=== PATIENT | female | born 1940 | race Two or more races ===

== ENCOUNTER 2021-04-25 12:13 | Emergency (ER) | payer OTHER ==
[2021-04-25 12:44] VITALS: TEMP 98.5
[2021-04-25 15:21] LABS: BASO % 1.1 % (0-2.0); EOS % 2.1 % (0-4.5); HEMOGLOBIN 13.4 GM/dL (10.7-15.3); LYMPH % 31.4 % (8-40); MCH 29.4 pg (25.7-33.7); MCHC 34.3 g/dl (32.0-36.0); MEAN CELL VOLUME 85.8 fl (80-96); MEAN PLT VOLUME 8.2 fl (7.5-11.1); MONO % 10.3 % (3.8-10.2); NEUT % 55.1 % (42.8-82.8); PLATELET COUNT 328 10^3/uL (134-434); RBC 4.54 M/mm3 (3.60-5.2); RDW 13.5 % (11.6-15.6); WHITE BLOOD COUNT 10.3 K/mm3 (4.0-10.0)
[2021-04-25 15:39] LABS: CHLORIDE 102 mmol/L (98-107); SODIUM 138 mmol/L (136-145)
[2021-04-25 15:42] LABS: ALBUMIN 3.4 g/dl (3.4-5.0); ANION GAP 8 MMOL/L (8-16); BLOOD UREA NITROGEN 9.7 mg/dL (7-18); CALCIUM 9.3 mg/dL (8.5-10.1); CO2 28 mmol/L (21-32); GLUCOSE,RANDOM 83 mg/dL (74-106)
[2021-04-25 15:45] LABS: CREATININE 0.5 mg/dL (0.55-1.3); SGOT/AST 74 U/L (15-37); SGPT/ALT 88 U/L (13-61)
[2021-04-25 15:47] LABS: BILIRUBIN,TOTAL 0.3 mg/dL (0.2-1); TOT PROT 6.8 g/dl (6.4-8.2)
[2021-04-25 15:48] LABS: ALK PHOS 191 U/L (45-117)
[2021-04-25] MEDS ORDERED: SODIUM CHLORIDE 0.9% 500 ML INFUS.BAG IV ONE (17:00)
[2021-04-25 17:32] VITALS: BP 147/71; PULSE 70
[2021-04-25 18:46] LABS: LDH 273 U/L (84-246)
[2021-04-25 19:16] LABS: EPI CELLS 2 /uL (0-25.1); HYALINE CASTS 0 /uL (0-3.1); URINE APPEARANCE CLEAR; URINE BACTERIA 2 /uL (0-1359); URINE BILIRUBIN NEGATIVE (NEGATIVE); URINE COLOR YELLOW; URINE GLUCOSE (UA) NEGATIVE (NEGATIVE); URINE KETONE NEGATIVE (NEGATIVE); URINE LEUK ESTERASE NEGATIVE (NEGATIVE); URINE NITRITE NEGATIVE (NEGATIVE); URINE PROTEIN NEGATIVE (NEGATIVE); URINE RBC 29 /uL (0-23.9); URINE WBC 1 /uL (0-25.8)
== END 2021-04-25 20:20 | disposition home or self-care (01) ==
LOC: JER 12:13
DX: R53.1 Weakness (principal); M79.10 Myalgia, unspecified site
CPT/HCPCS: 36415; 71045-TC-FY; 71275-TC; 80053; 81003; 82550; 82728; 83615; 83735; 84436; 84443; 84484; 85025; 85379; 86140; 87086; 87804; 93005; 93010; 99285-25; C9803; Q9967; U0003; U0005

== ENCOUNTER 2021-06-24 04:37 | Day surgery (SDC) | payer OTHER ==
[2021-06-24] MEDS ORDERED: LIDOCAINE HCL/PF 1% SDV 5ML VIAL ONE (07:42)
[2021-06-24] MEDS ORDERED: BUPIVACAINE HCL/PF 0.75% 10 ML VIAL ONE (07:42)
[2021-06-24] MEDS ORDERED: IOHEXOL 180 MG/1 ML ML IJ ONE (09:06)
[2021-06-24] MEDS ORDERED: BUPIVACAINE HCL/PF 0.5% (5 MG/ML) 30 ML VIAL IJ ONE (09:06)
[2021-06-24 09:32] VITALS: BP 110/55; PULSE 65; TEMP 98.7
== END 2021-06-24 11:00 | disposition home or self-care (01) ==
LOC: JASU-SURG 04:37
PROVIDERS: ATTEND Pain Medicine Pain Medicine
PROC: BR14YZZ Fluoroscopy of Cervical Facet Joint(s) using Other Contrast (ICD-10-PCS; 2021-06-24)
PROC: 3E0T3BZ Introduction of Anesthetic Agent into Peripheral Nerves and Plexi, Percutaneous Approach (ICD-10-PCS; principal; 2021-06-24 08:30)
DX: M47.812 Spondylosis without myelopathy or radiculopathy, cervical region (principal)
CPT/HCPCS: 76000-TC-FY

== ENCOUNTER 2021-07-25 05:19 | Day surgery (SDC) | payer OTHER ==
[2021-07-23 11:12] VITALS: BMI 25.7
[2021-07-25] MEDS ORDERED: BUPIVACAINE HCL/PF 0.5% (5MG/ML) 10 ML VIAL ONE (07:20)
[2021-07-25] MEDS ORDERED: LIDOCAINE HCL/PF 1% SDV 5ML VIAL ONE (07:20)
[2021-07-25] MEDS ORDERED: IOHEXOL 180 MG/1 ML ML IJ ONE (09:57)
[2021-07-25] MEDS ORDERED: BUPIVACAINE HCL/PF 0.5% (5MG/ML) 10 ML VIAL IJ ONE (09:59)
[2021-07-25] MEDS ORDERED: ACETAMINOPHEN 325 MG TABLET (FP) ONE (10:57)
[2021-07-25 12:22] VITALS: BP 135/72; PULSE 76; TEMP 98.7
== END 2021-07-25 11:42 | disposition home or self-care (01) ==
LOC: JASU-SURG 05:19
PROVIDERS: ATTEND Pain Medicine Pain Medicine
PROC: 3E0T33Z Introduction of Anti-inflammatory into Peripheral Nerves and Plexi, Percutaneous Approach (ICD-10-PCS; 2021-07-25)
PROC: 3E0T3BZ Introduction of Anesthetic Agent into Peripheral Nerves and Plexi, Percutaneous Approach (ICD-10-PCS; principal; 2021-07-25 09:40)
DX: M47.812 Spondylosis without myelopathy or radiculopathy, cervical region (principal)
CPT/HCPCS: 76000-TC-FY

== ENCOUNTER 2022-02-07 17:06 | Observation (INO) | payer OTHER ==
[2022-02-07 17:26] VITALS: BMI 25.4
[2022-02-07] MEDS ORDERED: ASPIRIN 81 MG CHEWABLE TABLETS PO ONE (19:19)
[2022-02-07] MEDS ORDERED: ONDANSETRON 4 MG/2 ML VIAL IVPB ONE (19:20)
[2022-02-07] MEDS ORDERED: SODIUM CHLORIDE 0.9% 500 ML INFUS.BAG IV ONE (19:20)
[2022-02-07] MEDS ORDERED: FAMOTIDINE 20 MG/50 ML IVPB 20 MG/50 ML MG IVPB ONE ×2 (19:20→19:29)
[2022-02-07] MEDS ORDERED: ACETAMINOPHEN 1000 MG/100 ML BAG IVPB ONE (19:21)
[2022-02-07] MEDS ORDERED: ONDANSETRON 4 MG/2 ML VIAL ONE ×2 (19:29→19:37)
[2022-02-07] MEDS ORDERED: ACETAMINOPHEN INJECTION 100 ML IVPB ONE (19:29)
[2022-02-07] MEDS ORDERED: ASPIRIN 81 MG CHEWABLE TABLETS ONE (19:29)
[2022-02-07 19:44] LABS: BASO % 0.8 % (0-2.0); EOS % 1.3 % (0-4.5); HEMATOCRIT 44.2 % (32.4-45.2); HEMOGLOBIN 14.4 GM/dL (10.7-15.3); INR 1.01 (0.83-1.09); MCH 28.8 pg (25.7-33.7); MCHC 32.6 g/dl (32.0-36.0); MEAN CELL VOLUME 88.3 fl (80-96); NEUT % 58.9 % (42.8-82.8); PLATELET COUNT 310 10^3/uL (134-434); PROTHROMBIN TIME (PATIENT) 11.6 SEC (9.7-13.0); RBC 5.01 M/mm3 (3.60-5.2); RDW 14.9 % (11.6-15.6); WHITE BLOOD COUNT 11.5 K/mm3 (4.0-10.0)
[2022-02-07 19:47] LABS: ACTIVATED PTT 33.3 SECONDS (25.2-36.5)
[2022-02-07 20:05] LABS: ALBUMIN 4.1 g/dl (3.4-5.0); BLOOD UREA NITROGEN 14.4 mg/dL (7-18); CALCIUM 9.3 mg/dL (8.5-10.1); MAGNESIUM 2.2 mg/dL (1.8-2.4)
[2022-02-07 20:08] LABS: CREATININE 0.6 mg/dL (0.55-1.3); PHOSPHOROUS 3.4 mg/dL (2.5-4.9)
[2022-02-07 20:09] LABS: TOT PROT 7.1 g/dl (6.4-8.2)
[2022-02-07 20:10] LABS: BILIRUBIN,TOTAL 0.3 mg/dL (0.2-1)
[2022-02-07] MEDS ORDERED: POLYETHYLENE GLYCOL (HEALTHYLAX) 3350 17 GM PACKET PO PRN (23:49)
[2022-02-08] MEDS ORDERED: traMADol HCL 50 MG TABLET PO PRN (00:17)
[2022-02-08] MEDS ORDERED: ZOLPIDEM TARTRATE 5 MG TABLET PO PRN ×3 (00:32→09:31)
[2022-02-08] MEDS ORDERED: ONDANSETRON 4 MG/2 ML VIAL IVPUSH PRN (01:00)
[2022-02-08] MEDS ORDERED: ACETAMINOPHEN 1000 MG/100 ML BAG IVPB PRN (01:00)
[2022-02-08] MEDS ORDERED: ZOLPIDEM TARTRATE 5 MG TABLET ONE (01:09)
[2022-02-08] MEDS ORDERED: BACLOFEN 10 MG TABLET (FP) PO PRN (01:53)
[2022-02-08 07:39] LABS: BASO % 0.9 % (0-2.0); EOS % 2.4 % (0-4.5); HEMATOCRIT 39.9 % (32.4-45.2); HEMOGLOBIN 13.8 GM/dL (10.7-15.3); LYMPH % 31.8 % (8-40); MCHC 34.6 g/dl (32.0-36.0); MEAN CELL VOLUME 86.6 fl (80-96); MEAN PLT VOLUME 7.7 fl (7.5-11.1); MONO % 8.7 % (3.8-10.2); NEUT % 56.2 % (42.8-82.8); PLATELET COUNT 283 10^3/uL (134-434); RDW 15.3 % (11.6-15.6); WHITE BLOOD COUNT 9.8 K/mm3 (4.0-10.0)
[2022-02-08 08:05] LABS: CALCIUM 8.7 mg/dL (8.5-10.1)
[2022-02-08 08:06] LABS: BLOOD UREA NITROGEN 12.2 mg/dL (7-18)
[2022-02-08 08:09] LABS: CREATININE 0.6 mg/dL (0.55-1.3)
[2022-02-08] MEDS ORDERED: MAG HYDROX/AL HYDROX/SIMETH 30 ML UNIT-DOSE CUP PO PRN (09:25)
[2022-02-08] MEDS ORDERED: ESCITALOPRAM OXALATE 20 MG TABLET PO SCH (10:00)
[2022-02-08] MEDS ORDERED: PANTOPRAZOLE 20 MG TABLET PO SCH ×2 (10:00)
[2022-02-08] MEDS ORDERED: ENOXAPARIN NA (PORCINE) 40 MG/0.4 ML DISP.SYRIN SQ SCH (10:00)
[2022-02-08] MEDS ORDERED: amLODIPine BESYLATE 10 MG TABLET (FP) PO SCH (10:00)
[2022-02-08] MEDS ORDERED: GABAPENTIN 100 MG CAPSULE PO SCH (10:00)
[2022-02-08] MEDS ORDERED: PANTOPRAZOLE 40 MG TABLET PO ONE (11:06)
[2022-02-08] MEDS ORDERED: GABAPENTIN 100 MG CAPSULE ONE (11:07)
[2022-02-08] MEDS ORDERED: amLODIPine BESYLATE 10 MG TABLET (FP) ONE (11:07)
[2022-02-08] MEDS ORDERED: ACETAMINOPHEN 325 MG TABLET (FP) ONE (11:08)
[2022-02-08 11:30] VITALS: TEMP 98.2
[2022-02-08 17:17] VITALS: BP 143/73; PULSE 78
[2022-02-09] MEDS ORDERED: ACETAMINOPHEN 325 MG TABLET (FP) PO PRN
== END 2022-02-08 17:30 | disposition home or self-care (01) ==
LOC: JER 17:06 → JERBED 22:59
PROVIDERS: ADMIT Hospitalist; ATTEND Internal Medicine
PROC: 3E033NZ Introduction of Analgesics, Hypnotics, Sedatives into Peripheral Vein, Percutaneous Approach (ICD-10-PCS; principal; 2022-02-07)
PROC: 3E033GC Introduction of Other Therapeutic Substance into Peripheral Vein, Percutaneous Approach (ICD-10-PCS; 2022-02-07)
PROC: 3E0337Z Introduction of Electrolytic and Water Balance Substance into Peripheral Vein, Percutaneous Approach (ICD-10-PCS; 2022-02-07)
DX: I10 Essential (primary) hypertension (principal); K21.9 Gastro-esophageal reflux disease without esophagitis; R07.89 Other chest pain; F32.9 Major depressive disorder, single episode, unspecified; M19.90 Unspecified osteoarthritis, unspecified site; G47.00 Insomnia, unspecified; Z86.79 Personal history of other diseases of the circulatory system; R10.13 Epigastric pain; D72.829 Elevated white blood cell count, unspecified
CPT/HCPCS: 0241U-QW; 36415; 71045-TC-FY; 74177-TC; 80048; 80053; 83690; 83735; 84100; 84484; 85025; 85610; 85730; 93005; 93010; 96365; 96375; 99285-25; G0378; Q9967

== ENCOUNTER 2022-12-25 13:56 | Emergency (ER) | payer OTHER ==
[2022-12-25 14:11] VITALS: BMI 31.3
[2022-12-25] MEDS ORDERED: traMADol HCL 50 MG TABLET PO ONE (16:19)
[2022-12-25] MEDS ORDERED: traMADol HCL 50 MG TABLET ONE (16:57)
[2022-12-25 18:12] VITALS: BP 136/68; PULSE 94; RESP 19; TEMP 98
== END 2022-12-25 18:15 | disposition home or self-care (01) ==
LOC: JER 13:56
DX: S80.02XA Contusion of left knee, initial encounter (principal); S20.212A Contusion of left front wall of thorax, initial encounter; S09.90XA Unspecified injury of head, initial encounter; R07.81 Pleurodynia; M25.552 Pain in left hip; M25.562 Pain in left knee; M25.572 Pain in left ankle and joints of left foot; M79.10 Myalgia, unspecified site; W01.0XXA Fall on same level from slipping, tripping and stumbling without subsequent striking against object, initial encounter; Y93.39 Activity, other involving climbing, rappelling and jumping off; Y92.480 Sidewalk as the place of occurrence of the external cause
CPT/HCPCS: 70450-TC; 71046-TC-FY; 71250-TC; 72125-TC; 72170-TC-FY; 73562-TC-LT-FY; 73610-TC-LT-FY; 73630-TC-LT; 99284-25

== ENCOUNTER 2023-12-03 16:44 | Observation (INO) | payer OTHER ==
[2023-12-03 16:46] VITALS: BMI 26.1
[2023-12-03] MEDS ORDERED: ASPIRIN 81 MG CHEWABLE TABLETS ONE (17:29)
[2023-12-03] MEDS: ASPIRIN 81 MG CHEWABLE TABLETS PO ONE (17:32)
[2023-12-03 17:34] LABS: EOS % 1.6 % (0-4.5); HEMATOCRIT 40.6 % (32.4-45.2); HEMOGLOBIN 13.6 GM/dL (10.7-15.3); LYMPH % 28.4 % (8-40); MCH 28.1 pg (25.7-33.7); MCHC 33.4 g/dl (32.0-36.0); MEAN CELL VOLUME 84.3 fl (80-96); MEAN PLT VOLUME 7.7 fl (7.5-11.1); MONO % 12.8 % (3.8-10.2); NEUT % 56.2 % (42.8-82.8); PLATELET COUNT 291 10^3/uL (134-434); RBC 4.82 M/mm3 (3.60-5.2); RDW 14.7 % (11.6-15.6); WHITE BLOOD COUNT 10.6 K/mm3 (4.0-10.0)
[2023-12-03 17:41] LABS: INR 1.11 (0.83-1.09); PROTHROMBIN TIME (PATIENT) 12.9 SEC (9.7-13.0)
[2023-12-03 17:54] LABS: POTASSIUM 3.7 mmol/L (3.5-5.1)
[2023-12-03 17:56] LABS: ALBUMIN 3.7 g/dl (3.4-5.0); BLOOD UREA NITROGEN 10.7 mg/dL (7-18); CALCIUM 9.2 mg/dL (8.5-10.1)
[2023-12-03 17:59] LABS: CREATININE 0.7 mg/dL (0.55-1.3)
[2023-12-03 18:01] LABS: BILIRUBIN,TOTAL 0.4 mg/dL (0.2-1); TOT PROT 6.7 g/dl (6.4-8.2)
[2023-12-03] MEDS ORDERED: LIDOCAINE 4% PATCH TP ONE (19:01)
[2023-12-03] MEDS: LIDOCAINE 4% PATCH TP ONE (19:07)
[2023-12-03 19:26] LABS: N-TERMINAL BNP 100.6 pg/ml (5-450)
[2023-12-03] MEDS ORDERED: PANTOPRAZOLE 20 MG TABLET PO ONE (21:24)
[2023-12-03] MEDS: PANTOPRAZOLE 20 MG TABLET PO ONE (21:28)
[2023-12-04 01:09] VITALS: RESP 16
[2023-12-04] MEDS ORDERED: BACLOFEN 10 MG TABLET (FP) PO PRN (01:28)
[2023-12-04] MEDS: ZOLPIDEM TARTRATE 5 MG TABLET PO ONE (01:36)
[2023-12-04] MEDS: LIDOCAINE PATCH REMOVAL MC SCH (05:03)
[2023-12-04] MEDS ORDERED: BACLOFEN 10 MG TABLET (FP) PO SCH (06:00)
[2023-12-04 08:46] LABS: BASO % 1.1 % (0-2.0); EOS % 3.5 % (0-4.5); HEMATOCRIT 39.7 % (32.4-45.2); HEMOGLOBIN 13.2 GM/dL (10.7-15.3); LYMPH % 36.4 % (8-40); MCH 28.3 pg (25.7-33.7); MCHC 33.3 g/dl (32.0-36.0); MEAN CELL VOLUME 85.2 fl (80-96); MEAN PLT VOLUME 8.1 fl (7.5-11.1); MONO % 11.5 % (3.8-10.2); NEUT % 47.5 % (42.8-82.8); PLATELET COUNT 279 10^3/uL (134-434); RBC 4.66 M/mm3 (3.60-5.2); RDW 14.4 % (11.6-15.6); WHITE BLOOD COUNT 8.4 K/mm3 (4.0-10.0)
[2023-12-04] MEDS: HYDROCHLOROTHIAZIDE 12.5 MG CAPSULE (FP) PO SCH (10:57)
[2023-12-04] MEDS: FAMOTIDINE 20 MG TABLET PO SCH (10:57)
[2023-12-04] MEDS: ASPIRIN 81 MG CHEWABLE TABLETS PO SCH (10:57)
[2023-12-04] MEDS: ESCITALOPRAM OXALATE 20 MG TABLET PO SCH (10:57)
[2023-12-04 14:06] VITALS: BP 113/56; PULSE 65; TEMP 98.5
[2023-12-04 14:41] LABS: CALCIUM 9.2 mg/dL (8.5-10.1); CREATININE 0.6 mg/dL (0.55-1.3); POTASSIUM 4.1 mmol/L (3.5-5.1)
== END 2023-12-04 16:20 | disposition home or self-care (01) ==
LOC: JER 16:44 → JERBED 21:33 → J4S 12-04 00:59
PROVIDERS: ADMIT Student in an Organized Health Care Education/Training Program; ATTEND Internal Medicine
DX: K21.9 Gastro-esophageal reflux disease without esophagitis (principal); R94.31 Abnormal electrocardiogram [ECG] [EKG]; I10 Essential (primary) hypertension; M19.90 Unspecified osteoarthritis, unspecified site; F32.A Depression, unspecified; G47.00 Insomnia, unspecified
CPT/HCPCS: 0241U-QW; 36415; 71045-TC-FY; 71275-TC; 74174-TC; 80048; 80053; 80061; 82550; 83735; 83880; 84484; 85025; 85610; 85730; 93005; 93010; 99285-25; G0378; Q9967